=== PATIENT | female | born 1985 | race Caucasian/White ===

== ENCOUNTER → 2018-02-09 | Outpatient (CLI) | payer MEDICAID ==
[~2018-02-09] MED LIST: ACE3 PO; AZIT500T47 PO; COLC0.6T2 PO; FERR324T16 PO; FERR325T24 PO; HYDR-317 PO; IBU800 PO; INDO75CA PO; LEVO137T22 PO; LEVO175T42 PO; LEVO50TA86 PO; LISI-362 PO; LOR5 PO; LOR5/325 PO; NAPR-1043 PO; NO ROUTINE MEDS; NORE1TAB PO; NORE1TAB86 PO; PRED-1 PO; SULF-198 PO
[2018-02-09 09:39] LABS: PLATELET COUNT, AUTOMATED 247 K/uL (150-450)
[2018-02-09 10:03] LABS: LDL CHOLESTEROL 131 mg/dl
== END ==
LOC: LAB 09:17
PROVIDERS: ATTEND Emergency Medicine
DX: E03.9 Hypothyroidism, unspecified (principal); I10 Essential (primary) hypertension; R73.03 Prediabetes
CPT/HCPCS: 36415; 82040; 82247; 82310; 82374; 82435; 82465; 82565; 82947; 83036; 83718; 84075; 84132; 84155; 84295; 84443; 84450; 84460; 84478; 84520; 85025

== ENCOUNTER → 2018-02-10 | Outpatient (CLI) | payer MEDICAID ==
[~2018-02-10] MED LIST changes: +CHOL500045 PO
--- NOTE | 2018-02-10 15:14 | RADIOLOGY IMAGING REPORT ---
FACILITY: [facility] - [place] PATIENT NAME: Felisa Tong : 1985 MR: [id number] V: [id number] EXAM DATE: ORDERING PHYSICIAN: RADHA OSHEA TECHNOLOGIST: Location: [facility] [place] Patient: Felisa Tong : 1985 Visit/Account:[id number] Date of Sevice: 02/10/2018 Exam type: KNEE 3 VIEW RIGHT History: Right knee pain Comparison: None. Findings: There is very mild marginal spurring seen in the medial and lateral compartments and patellofemoral c ompartment. There is no evidence of acute fracture or dislocation or lytic or blastic bone lesion. IMPRESSION: 1. Mild marginal spurring seen in all three compartments of the right knee Report Dictated By: Ana Forrest MD at 02/10/2018 3:09 PM Report E-Signed By: Ana Forrest MD at 02/10/2018 3:10 PM WSN:[email or web address]
== END ==
LOC: LAB 13:37
PROVIDERS: ATTEND Emergency Medicine
DX: R94.5 Abnormal results of liver function studies (principal)
CPT/HCPCS: 36415; 82306; 82977

== ENCOUNTER → 2018-02-22 | Outpatient (CLI) | payer MEDICAID | LOC: AUD 12:00 | PROVIDERS: ATTEND Emergency Medicine | DX: H90.3 Sensorineural hearing loss, bilateral (principal) | CPT/HCPCS: 92557; 92570; 92587 ==

== ENCOUNTER 2018-03-01 13:00 | Outpatient (RCR) | payer MEDICAID ==
--- NOTE | 2018-02-22 15:04 | PT INITIAL EVALUATION ---
MEDICAL DIAGNOSIS: Osteoarthritis of knee TREATMENT DIAGNOSIS: same DATE OF ONSET: 12/23/17 SUBJECTIVE: Felisa Tong presents to physical therapy with complaints of R knee pain that started approximately 2 months ago. She reports that the pain becomes worse with walking, swimming, going up and down stairs, and with certain movements of her knee (particularly R hip IR). Furthermore, she reports that her R knee feels better with rest and being in her recliner. She rates her R knee pain to be 3-4/10 after walking around the park plus one block. She rates her current pain to be 0-1/10 and describes it to be achy directly above the knee and below the knee. Pain location is distal quad/rectus femoris, and patellar tendon at the insertional point. 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 extension: NIL with normal end feels. IR: NIL with normal end feels. ER: NIL with normal end feels. B knee flexion: L knee: NIL with normal end feels. R knee: minimal restriction with painful end feel. B knee extension: NIL with normal end feels. Strength: B hip flexion, extension, abduction, adduction, B knee flexion, B ankle PF and DF: 4/5 with no pain during MMT's. R knee extension: strong and painful on distal quad and patellar tendon. L knee extension: 4+/5 with no pain. Palpation: TTP: R distal quad/rectus femoris, and patellar tendon at the insertional point. she was not tender along R joint lines of her knee. She was not on posterior side of her R knee. Sensation: Intact L2-S1 Special Tests: Patellar tendinopathy: (+) with contraction, stretch, and palpation. (-) ACL, PCL, LCL, MCL, meniscus (M/L) Mobility: Independent Gait: She demonstrated increased base of support, decreased velocity, B knee hyperextension during stance phase of gait, decreased B pelvic mobility, normal B feet clearance, and normal B step lengths. ASSESSMENT: Felisa will benefit from skilled physical therapy addressing the listed impairments to improve function and QOL. Short Term Goals 3 weeks: Pt will demonstrate a 50% reduction in pain with going up and down stairs, with walking, and with swimming to improve function and QOL. 6 weeks: Pt will demonstrate a 100% reduction in pain with going up and down stairs, with walking, and with swimming to improve function and QOL. Patient's Goals do more physical things without pain, decrease weight, and be able to walk more PLAN: Patient to be seen for Manual Therapy/STM/MET Strengthening/condition Range of Motion Spinal Stabilization Work Hardening/Cond Stretching Iontophoresis Neuromuscular Re-ed Closed Chain Program Posture/Body mechanics Gait Trg/Balance Trg Home Exercise Program Therapeutic Activities 2-3x/week for 2 Months If you have any questions, comments, or concerns about this report or plan, please contact me at . Thank you, Kerwin Talbot, PT, DPT ANNA
--- NOTE | 2018-04-07 16:39 | PT PLAN OF CARE ---
Physician: Faustina Nichols MD Patient is being seen: 1-2x/week Therapist: Kerwin Talbot, PT, DPT Medical Diagnosis: Osteoarthritis of knee Treatment Diagnosis: same Date of Onset: 12/23/17 Date of Initial Evaluation: 02/22/18 Date patient was last seen: 03/05/18 Number of treatments: 2 Number of cancellations/No shows: 1 INTERVENTIONS: Manual Therapy/STM/MET Strengthening/condition Range of Motion Spinal Stabilization Work Hardening/Cond Stretching Iontophoresis Neuromuscular Re-ed Closed Chain Program Posture/Body mechanics Gait Trg/Balance Trg Home Exercise Program Therapeutic Activities GOALS: 3 weeks: Pt will demonstrate a 50% reduction in pain with going up and down stairs, with walking, and with swimming to improve function and QOL. 6 weeks: Pt will demonstrate a 100% reduction in pain with going up and down stairs, with walking, and with swimming to improve function and QOL. PATIENT'S GOAL: do more physical things without pain, decrease weight, and be able to walk more Status of Patient's Goals: Unknown Patient Compliance: Poor Prognosis: Excellent Reasons for continuing therapy: This is a discharge note for Felisa Tong. She came for the initial examination and one treatment session. Following that she cancelled her last appointment and will not return calls. So it is unknown how she is doing. As a result, she will be discharged from PT. Posture: She demonstrated forward head, B rounded shoulder, increased thoracic kyphosis, and decreased lumbar lordosis ROM: B hip AROM: flexion: NIL with normal end feels. extension: NIL with normal end feels. IR: NIL with normal end feels. ER: NIL with normal end feels. B knee flexion: L knee: NIL with normal end feels. R knee: minimal restriction with painful end feel. B knee extension: NIL with normal end feels. Strength: B hip flexion, extension, abduction, adduction, B knee flexion, B ankle PF and DF: 4/5 with no pain during MMT's. R knee extension: strong and painful on distal quad and patellar tendon. L knee extension: 4+/5 with no pain. Palpation: TTP: R distal quad/rectus femoris, and patellar tendon at the insertional point. she was not tender along R joint lines of her knee. She was not on posterior side of her R knee. Special Tests: Patellar tendinopathy: (+) with contraction, stretch, and palpation. (-) ACL, PCL, LCL, MCL, meniscus (M/L) Mobility: Independent If you have questions, please contact me at [phone]. Thank you, Kerwin Talbot, PT, DPT MTDD
== END 2018-05-23 ==
LOC: PT 13:00
PROVIDERS: ATTEND Emergency Medicine
DX: M17.11 Unilateral primary osteoarthritis, right knee (principal)
CPT/HCPCS: 92557; 92570; 92587; 97162